=== PATIENT | male | born 1990 ===

== ENCOUNTER 2016-12-27 19:05 | Inpatient (IN) ==
[~2016-12-27 19:05] MED LIST: [UNRECOGNIZED DRUG - OTHER] IV ONE
[2016-12-27] MEDS ORDERED: AMPICILLIN/SULBACTAM 3,000 MG in SODIUM CHLORIDE 0.9% 100 ML IV STA (19:26)
[2016-12-27] MEDS ORDERED: DIPH/TET/ACEL PERT BOOSTER VACCINE 0.5 ML VIAL IM ONE ×2 (19:26→19:40)
[2016-12-27] MEDS ORDERED: SODIUM CHLORIDE 0.9% 500 ML IV STA (19:28)
[2016-12-27] MEDS ORDERED: HYDROmorphone 2 MG/1 ML VIAL IV STA (19:28)
[2016-12-27] MEDS ORDERED: ONDANSETRON 4 MG/2 ML VIAL IV STA (19:28)
--- NOTE | 2016-12-27 19:30 | Emergency Department Note ---
Suzanne Plata Hilary, am scribing for, and in the presence of, Srikanth Waters MD 19:23. Jt Plata Charles R, MD, personally performed the services described in this documentation, ascribed by Alejandra Palacios in my presence, and it is both accurate and complete 930 . Arrival - Arrival Chief Complaint: Animal Bite Stated Complaint: snake bite ED Nursing Triage Note: Pt arrives via ems from home with complaints of cleaning up around his house and was bitten by a snake. Pt has snake at time of triage and it is confirmed to be a water mocassion. Pt has bite to third digit on right hand. Hand is noted to be swollen at time of triage. Denies any other complaints at time of triage. Mode of Arrival: Stretcher Limitations: No Limitations Source: Patient, RN Notes Reviewed Time Seen by Provider: 12/27/16 19:08 - History of Present Illness HPI Narrative: Pt is a 26 y/o male brought into the ED via EMS from [facility] for c/o a snake bite which onset an hour X [employer]. [place] when he was bitten by a water moccasin. The snake is in the room, in a zip lock bag, and is a venomous snake due to its head and tail shape. The snake bit him on his right hand 3rd digit, pt states that he is not in pain other than his hand. No other complaints or problems stated in the ED. Onset (ago): hour(s) Consistency: constant Severity: severe Severity scale (1-10): 4 Allergies/Adverse Reactions: Allergies Allergy/AdvReac Type Severity Reaction Status Date / Time No Known Allergies Allergy Verified 12/27/16 19:16 Home Medications: Home Medications Medication Instructions Recorded Confirmed Type Meloxicam [Mobic] 15 mg PO Q4-6H PRN 12/27/16 12/27/16 History Review of System - Review of System 12 point system: reviewed and no additional remarkable complaints except as stated - Review of System Constitutional: Absent: fever Musculoskeletal: Present: arm pain (right hand, 3rd digit snake bite) Skin: Present: other (swollen right hand) Medical,Surgical,& Family Hx - Social History Smoking Status: Current every day smoker Frequency of Alcohol Use: None Type of Drug Use: Marijuana Exam Vital Signs: Vital Signs Temperature 98.4 F 12/27/16 19:05 Pulse Rate 62 12/27/16 19:16 Respiratory Rate 18 12/27/16 19:05 Blood Pressure 137/94 12/27/16 19:05 O2 Sat by Pulse Oximetry 99 12/27/16 19:05 - General General appearance: alert, in no apparent distress - Head Head exam: Present: atraumatic, normocephalic - Eye Eye exam: Present: normal appearance, PERRL, EOMI - ENT ENT exam: Present: mucous membranes moist, TM's normal bilaterally. Absent: mucous membranes dry - Neck Neck exam: Present: full ROM, trachea midline. Absent: tenderness - Chest Chest inspection: Present: symmetric chest wall rise. Absent: tenderness - Respiratory Respiratory exam: Present: normal lung sounds bilaterally. Absent: respiratory distress - Cardiovascular Cardiovascular exam: Present: regular rate, normal rhythm, normal heart sounds. Absent: murmur, rubs, gallop - Abdominal Exam Abdominal exam: Present: soft, normal bowel sounds. Absent: distention, tenderness - Extremities Exam Extremities exam: Present: full ROM, other (Rt hand middle digit has puncture wound and envenomation up to his wrist) - Back Exam Back exam: Present: full ROM. Absent: tenderness - Neurological Exam Neurological exam: Present: alert, oriented X3, CN II-XII intact. Absent: motor sensory deficit - Psychiatric Psychiatric exam: Present: normal affect, normal mood - Skin Skin exam: Present: warm, dry, intact, normal color. Absent: rash Course - Consultations Consultation #1: spoke to Dr chávez at the [facility] states is no reason to transfer patient. Patient can be handled here with CroFab and medical management. He said he will be there for backup in case they need advice or help manage this patient from a far. Spoke to hospitalist who will come down and evaluate patient Time: 19:15 Consultation #2: Hospitalist will admit patient Time: 20:07 Results - Labs CBC & BMP: 12/27/16 19:41 Lab Results: I have reviewed the patients labs Critical Care Time Critical Care Time: Yes Total Critical Care Time: 60 Disposition Clinical Impression: Snake envenomation Case discussed with: patient Disposition: Still a Patient Condition: Guarded Time of Disposition: 20:08
[2016-12-27] MEDS ORDERED: ONDANSETRON 4 MG/2 ML VIAL ONE (19:39)
[2016-12-27] MEDS ORDERED: HYDROmorphone 2 MG/1 ML VIAL ONE (19:40)
[2016-12-27] MEDS ORDERED: SODIUM CHLORIDE 0.9% 100 ML IV ONE (19:40)
[2016-12-27] MEDS ORDERED: AMPICILLIN/SULBACTAM 3,000 MG VIAL ONE (19:40)
--- NOTE | 2016-12-27 19:41 | XRay Report ---
Exam: XR hand 2V RT Date: 12/27/2016 7:26 PM Indication: Soft tissue swelling fracture wound or foreign body? Comparison: None Technical: AP lateral Findings: Soft tissue swelling is present the radius and ulna carpal bones metacarpals are demonstrated without fracture. Tiny subchondral cysts present over the third metacarpal head. Phalanges are intact. Impression: 1. Soft tissue swelling without obvious fracture or dislocation or radiographic foreign body clearly seen. Component of cellulitis cannot be excluded 2. Subchondral cysts present over the third metacarpal head. PROCEDURE INTERPRETED AT [facility] DEPARTMENT OF RADIOLOGY Final Report Signed by: Dr. aCsimiro Melara
[2016-12-27 19:57] LABS: Basophils # 0.1 10*3/uL (0.0-0.2); Basophils % 0.7 % (0.0-0.8); Eosinophils # 0.5 10*3/uL (0.0-0.87); Eosinophils % 6.4 % (0.00-10.9); Hematocrit 42.3 VOL% (42.0-52.0); Hemoglobin 14.5 GM/DL (14.0-18.0); Immature Granulocytes % 0.4 %; Immature Granulocytes Absolute 0.03 #; Lymphocytes % 26.5 % (21.2-54.2); Mean Corpuscular HGB Conc 34.3 GM/DL (32-36); Mean Corpuscular Hemoglobin 33 PG (27-34); Mean Corpuscular Volume 95.1 FL (87-102); Mean Platelet Volume 9.3 FL (9.6-12.0); Monocytes # 0.6 10*3/uL (0.11-0.8); Monocytes % 7.7 % (1.7-12.7); Neutrophils # 4.3 10*3/uL (1.4-7.4); Neutrophils % 58.3 % (38.7-73.9); Platelet Count 186 T/CUMM (130-400); Red Blood Count 4.45 MC/CUMM (3.8-5.5); Red Cell Distribution Width 13.2 % (9.3-17.3); White Blood Count 7.4 T/CUMM (4-12)
[2016-12-27 20:09] LABS: PT Patient Result 10.9 SECS
[2016-12-27 20:18] LABS: Alanine Aminotransferase 35 U/L (16-61); Alkaline Phosphatase 75 U/L (45-117); Aspartate Amino Transferase 20 U/L (0-37); Bilirubin,Total < 0.39 MG/DL (0.2-1.0); Blood Urea Nitrogen 22 MG/DL (7-18); Calcium 9.1 MG/DL (8.5-10.1); Glucose 100 MG/DL (74-106); Magnesium 2.4 MG/DL (1.8-2.4); Osmolality,Calculated 292.6 MOS/KG (273-304); Potassium 3.9 MMOL/L (3.5-5.1); Sodium 146 MMOL/L (136-145)
--- NOTE | 2016-12-27 20:33 | Hospitalist History & Physical ---
Assessment and Plan (1) Toxic effect of venom of snake Status: Acute Assessment and plan: This crotalid envenomation was by water moccasin. Patient is already been started on CroFab will evaluate the effect of the face dose. If there is worsening conditions that would be worrisome including worsening coag profile worsening swelling in the second dose will be given. Also watch respiratory and cardiac function and also electrolytes. Patient will be admitted to the intensive care unit for more closer observation. From the sound of the started at the time of bites there must have been a lot of venom injected because his snake was hanging on the finger; he had to put it off. He brought the snake to the hospital and was verified to be a water moccasin Current Visit: Yes (2) Cellulitis Status: Acute Assessment and plan: Patient will be started on Zosyn and vancomycin. There was an initial dose of ampicillin given. Zosyn will be given at 10 PM but again we will give vancomycin now. Consent will be to cover for environmental gram negatives in the water as well as anaerobes seen at this night is living in saprophytic involvement staphylococcal organism also need to be covered. Current Visit: No Qualifiers: Site of cellulitis: extremity Site of cellulitis of extremity: upper extremity Laterality: right Qualified Code(s): L03.113 - Cellulitis of right upper limb History of Present Illness Chief complaint: Snakebite/water moccasin History of present illness: Mr. Da Silva is a 26 year old male whom" to see in the emergency room after stabilization. Patient was brought into the emergency room by ambulance following a snakebite by a water moccasin around his household. Including traction the backyard disease. This neck bit him on the arch of the hand on the third digit of the right hand had to pull it off. Acute dyspneic and cut his head off. His neck is in his Cipro back in the room in the emergency room. The time of my assessment patient was already receiving CROFAB intravenously. No swelling of the hand and the markings on the hand that did suggest that is what he was getting down. Is noted ecchymosis at the site of the bite no blistering noted going up the arm. Patient is no complaining of abdominal pain his heart rate was below 100 with sinus control and was not having any respiratory difficulty. No nausea and vomiting. Home Medications Medication Instructions Recorded Confirmed Type Meloxicam [Mobic] 15 mg PO Q4-6H PRN 12/27/16 12/27/16 History Allergies Allergy/AdvReac Type Severity Reaction Status Date / Time No Known Allergies Allergy Verified 12/27/16 19:16 Medical,Surgical,& Family Hx - Medical History Medical History: noncontributory - Social History Smoking Status: Current every day smoker Frequency of Alcohol Use: None Type of Drug Use: Marijuana Review of systems: 12 point system assessment was done. Patient does have a swollen right hand. From serial assessment looks that the swelling is going down since the study of the CroFab. Has no bleeding tendencies done no blistering going up was no lymphangitis no obvious phlebitis. Does have some discomfort in the hand but pain management is optimal no respiratory distress no nausea vomiting no abdominal pain no neurologic abnormalities. Exam - Constitutional Vitals: Period Temp Pulse Resp BP Sys/Llanes Pulse Ox Last 24 Hr 98.4 F-98.4 F 62-65 18-18 137-137/91-94 99 General appearance: normal weight - Head Head exam: Present: normocephalic, atraumatic - Eye Eye exam: Present: EOMI, other (Anicteric sclera no conjunctival petechia) Pupils: Present: MAGDY - ENT ENT exam: Present: normal oropharynx, other (No mucositis no increased secretions) - Neck Neck exam: Present: other (Neck is supple no adenopathy midline trachea no stridor) - Respiratory Respiratory exam: Present: clear to auscultation bilaterally, other (No rales no wheezing good airflow) - Cardiovascular Cardiovascular exam: Present: regular rate and rhythm, other (EKG is pending surveillance system monitor patient has sinus control no ectopy) - GI/Abdominal GI/Abdominal exam: Present: normal bowel sounds, soft, other (No abdominal tenderness or pain no organomegaly) - Extremities Exam Extremities exam: Present: other (Limitation of movement of digits in the right hand otherwise range of motion is normal as well. She does a swallowing right hand and ecchymosis and bruise at site of bite of the third finger no regional adenopathy no lymphangitis no phlebitis) - Neurological Exam Neurological exam: Present: alert, oriented X3, CN II-XII intact - Psychiatric Psychiatric exam: Present: normal affect, normal mood - Skin Skin exam: Present: other (Except for the involved hand with a snakebite everything else is normal) Results - Labs CBC & BMP: 12/27/16 19:41 12/27/16 19:41 Lab Results: I have reviewed the past 24 hour labs (Coag profile is showing a normal international normalizing ratio PTTs pending fibrinogen been and D- dimers are pending CBC is normal. Unusual sodium, chloride and BUN of all elevated. Repeat labs to be drawn at midnight and then in the morning)
[2016-12-27 20:40] LABS: D-Dimer <= 0.5 MG/L FEU; Fibrinogen Quant Value 227 MG% (200-400); Partial Thromboplastin Time 29.8 SECS (0-40)
[2016-12-27] MEDS ORDERED: SODIUM CHLORIDE IV STA (20:50)
[2016-12-27] MEDS ORDERED: CROTALIDAE SNAKE ANTIVENOM IV STA (20:50)
[2016-12-27] MEDS ORDERED: VANCOMYCIN INJ 1,250 MG in SODIUM CHLORIDE 0.9% 250 ML IV ONE (22:00)
[2016-12-28] MEDS ORDERED: CROTALIDAE SNAKE ANTIVENOM 4 VIAL in SODIUM CHLORIDE 0.9% 250 ML IV ONE (00:18)
--- NOTE | 2016-12-28 00:22 | Event Note ---
Called to the patient's bedside because of complaining of swelling in the throat and the whole head and also itching in face and the neck area. Is complaining of numbness in the mouth. Patient was bitten by water moccasin in the third finger of the right hand yesterday. Swelling of the hand is less noticed that there is increasing redness in the face and is complaining of numbness in the mouth and feeling negative throat is swelling. His vital signs are normal he finished his first dose of antivenom around 10 about 2 hours prior. Examination clear lungs on both sides I do not see much of edema but there is a little edema of the face and neck area whether this is vancomycin that has been getting his neck. It will vancomycin was not fast at all. Will discontinue vancomycin and because of his complaint of numbness in the mouth will have to give him another shot of cough. We will give him a total of 5 vials on the second dose. Continue to monitor the patient in the intensive care unit.
[2016-12-28 00:25] LABS: Basophils % 0.3 % (0.0-0.8); Eosinophils # 0.4 10*3/uL (0.0-0.87); Eosinophils % 3.6 % (0.00-10.9); Hematocrit 41.2 VOL% (42.0-52.0); Hemoglobin 13.9 GM/DL (14.0-18.0); Immature Granulocytes % 0.4 %; Immature Granulocytes Absolute 0.04 #; Lymphocytes # 1.9 10*3/uL (1.4-4.0); Lymphocytes % 17.4 % (21.2-54.2); Mean Corpuscular HGB Conc 33.7 GM/DL (32-36); Mean Corpuscular Hemoglobin 32 PG (27-34); Mean Corpuscular Volume 95.8 FL (87-102); Mean Platelet Volume 9.4 FL (9.6-12.0); Monocytes # 0.8 10*3/uL (0.11-0.8); Monocytes % 7.8 % (1.7-12.7); Neutrophils # 7.5 10*3/uL (1.4-7.4); Neutrophils % 70.5 % (38.7-73.9); Platelet Count 170 T/CUMM (130-400); Red Cell Distribution Width 13.2 % (9.3-17.3); White Blood Count 10.6 T/CUMM (4-12)
[2016-12-28 00:46] LABS: Albumin 3.5 G/DL (3.4-5.0); Bilirubin,Total 0.4 MG/DL (0.2-1.0); Calcium 8.3 MG/DL (8.5-10.1); Magnesium 2.1 MG/DL (1.8-2.4); Osmolality,Calculated 292.7 MOS/KG (273-304); Potassium 3.9 MMOL/L (3.5-5.1); Total Protein 6.3 G/DL (6.4-8.3)
[2016-12-28 02:02] LABS: PT Patient Result 10.7 SECS; Partial Thromboplastin Time 30.3 SECS (0-40)
--- NOTE | 2016-12-28 04:46 | EKG Report ---
Stationary ECG Study [facility] Test Date: 12/27/2016 11:38:43 PM Pat Name: CARMEN LEMUS Department: Room: 121 Gender: M Design Consultant: : 1990 Requested by: Van Fontana Order Number: [id number] Reading MD: TONNY RODRÍGUEZ Intervals [place] Rate: 61 P: 88 CA: 199 QRS: 19 QRSD: 116 T: 49 QT: 404 QTc: 407 Interpretive Statements SINUS RHYTHM Electronically Signed On 12-29-16 15:04:20 CDT by TONNY RODRÍGUEZ [email or web address]
[2016-12-28] MEDS: PIPERACILLIN/TAZOBACTAM 3,375 MG in SODIUM CHLORIDE 0.9% 100 ML IV SCH ×3 (05:34→21:00)
--- NOTE | 2016-12-28 08:45 | EKG Report ---
Stationary ECG Study [facility] Test Date: 12/28/2016 8:46:21 AM Pat Name: CARMEN LEMUS Department: Room: 121 Gender: M Book Trimmer: : 1990 Requested by: Micaela Smith Order Number: [id number] Reading MD: TONNY RODRÍGUEZ Intervals [place] Rate: 53 P: 17 VA: 178 QRS: 66 QRSD: 103 T: 66 QT: 425 QTc: 407 Interpretive Statements SINUS BRADYCARDIA POSSIBLE RIGHT VENTRICULAR CONDUCTION DELAY Electronically Signed On 12-29-16 15:10:55 CDT by TONNY RODRÍGUEZ [id number]
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
[2016-12-28] MEDS ORDERED: VANCOMYCIN INJ 1,250 MG in SODIUM CHLORIDE 0.9% 250 ML IV SCH (09:00)
--- NOTE | 2016-12-28 13:06 | Hospitalist Progress Note ---
Assessment and Plan (1) Toxic effect of venom of snake Status: Acute Assessment and plan: 1)snake bite right finger- he has received a total of 10vials of antevenom. Monitor for 18 more hours and if he is still doing well he can be discharged. Appreciate the help from DR Tello. The oral numbness and concern of swelling of his face from the middle of the night has resolved. No respiratory complaints. Labs including platelets and INR are normal. 2)bradycardia- on tele. cards to see. he does not take meds that would cause bradycardia, and it was happening even when he was awake. He is not a highly conditioned athlete though he is young. Current Visit: Yes Qualifiers: Encounter type: initial encounter (2) Bradycardia Status: Acute Current Visit: Yes Hospitalist: Subjective Interval history: Mr Da Silva is doing ok today. His right hand is swollen and tender going up his forearm. He says it is better than it was at it'sworst last night. I discussed the case with Dr Tello and informally with Dr Declan Porter, and I appreciate their help. His heart rate is in the 30s. He is asymptomatic and EKGshows sinus fer. cardiology eval pending. No report of bradycardia specifically with water mocassin bites, though there can be arrhythmias. Exam - Constitutional Vitals: Period Temp Pulse Resp BP Sys/Llanes Pulse Ox Last 24 Hr 97.3 F-98.6 F 44-86 14-24 91-137/57-94 95-100 General appearance: normal weight, no acute distress - Head Head exam: Present: normal inspection, atraumatic - Eye Eye exam: Present: EOMI. Absent: scleral icterus - Respiratory Respiratory exam: Present: clear to auscultation bilaterally - Cardiovascular Cardiovascular exam: Present: regular rate and rhythm - GI/Abdominal GI/Abdominal exam: Present: normal bowel sounds, soft. Absent: tenderness - Extremities Exam Extremities exam: Present: other (right hand and forearm swollen compared to left. No redness no blisters. tender to palpation. No rashes. Fang wounds small , clean) Results - Labs CBC & BMP: 12/28/16 00:15 12/28/16 00:15 Lab Results: I have reviewed the past 24 hour labs
[2016-12-28 14:29] LABS: Free T4 (Free Thyroxine) 0.97 NG/DL (0.76-1.46); Thyroid Stimulating Hormone 3.26 uIU/ml (0.358-3.74)
--- NOTE | 2016-12-28 14:46 | Cardiology Consult Note ---
Marcela Plata April, RN, am scribing for, and in the presence of, Juvenal Corcoran MD 14:46. Assessment and Plan - Time spent with patient Time spent with patient: Greater than 30 minutes (Due to assessment, planning, documentation, medication review) (1) Bradycardia Status: Acute Assessment and plan: 1. 26-year-old male smoker (3 per day) with no known past medical history presented yesterday evening after water moccasin bite to his right hand and reportedly had heart rate in the mid 40s at one point. 2. The patient is calm and hemodynamic is stable with heart rate in the 60s currently (sinus) 3. Unremarkable cardiac examination 4. Do not suspect any current cardiac problems; we will sign off, please call if needed prior to discharge. 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 Da Silva is a 26 year old male who is currently sleeping from pain medication. He will awaken easily but continues to days off. His is at bedside and she provides the history. She reports he has never seen a risk modeler, never had a stress test or heart cath. Denies any medical history except for chronic back pain. Surgical history includes surgery of his right hand. He is a current everyday smoker, drinks alcohol occasionally and uses marijuana. He was cleaning up in the yard yesterday when he was bit on the right hand by a water moccasin. He presented to the emergency department and was given antivenom as well as vancomycin. [facility] medicine and general surgery is following this. EKG on admission showed sinus rhythm with heart rate of 61, EKG this morning showed sinus bradycardia with heart rate 53. We have been consulted to see for bradycardia. His denies any knowledge of him having any issues with his heart rate or rhythm in the past. His nurses his heart rate has ranged from the 40s to the 70s. She says most of the time when it is in the 40s he is sleeping, but not always. She also says that it does not stay in the 40s along with her he is sleeping or not, it quickly goes back up into the 60s and 70s. He denies having had any chest pain. He denies any currently. He reports he does have some shortness of breath after being given antibiotic last night, he reports this was stopped and he has had no further shortness of breath. His only complaint currently is of right hand pain. He is currently resting in bed in no acute distress. teletypesetter monitor currently shows sinus rhythm with heart rates in the 50s-60s. Blood pressure currently 106/70. CC: Micaela Smith MD - Home Medications and Allergies Home Medications: Home Medications Medication Instructions Recorded Confirmed Type Ibuprofen 800 mg PO Q8HR 12/27/16 12/27/16 History Meloxicam [Mobic] 15 mg PO ONCE 12/27/16 12/27/16 History tiZANidine [Zanaflex] 4 mg PO TID 12/27/16 12/27/16 History Allergies/Adverse Reactions: Allergies Allergy/AdvReac Type Severity Reaction Status Date / Time No Known Allergies Allergy Verified 12/27/16 19:16 - Constitutional Constitutional: Present: as per HPI - EENT Eyes: Present: loss of vision. Absent: requires corrective lense Ears: Absent: decreased hearing, tinnitus Nose, mouth and throat: Present: headache(s). Absent: epistaxis, neck pain - Cardiovascular Cardiovascular: Present: edema (Right hand). Absent: chest pain at rest, chest pain with activity, dyspnea, dyspnea on exertion, radiating jaw, neck or arm pain, lightheadedness, orthopnea, palpitations - Respiratory Respiratory: Absent: cough, dyspnea, hemoptysis, dyspnea on exertion, wheezing - Gastrointestinal Gastrointestinal: Absent: abdominal pain, constipation, diarrhea, hematemesis, hematochezia, melena, nausea, vomiting - Genitourinary Genitourinary: Absent: dysuria, hematuria - Musculoskeletal Musculoskeletal: Present: back pain. Absent: limited range of motion, muscle weakness - Neurological Neurological: Present: headache(s). Absent: dizziness, frequent falls, syncope - Psychiatric Psychiatric: Absent: anxiety, depression - Endocrine Endocrine: Absent: fatigue - Hematologic/Lymphatic Hematologic/Lymphatic: Absent: easy bleeding, easy bruising Medical,Surgical,& Family Hx - Medical History Musculoskeletal: History of: Back/Neck Problems (Chronic back problems) - Surgical History Additional Surgical History: Right hand surgery - Family History Family History: Reports;: Family Diabetes (pts mom), Family Heart Disease (pts grandfather) - Social History Smoking Status: Current every day smoker Have you smoked in the last 12 months: Yes Frequency of Alcohol Use: Occasionally Type of Drug Use: Marijuana Marital Status: Lives With:: Spouse Functional capacity: independent ambulation Physical Examination Vital Signs Temp Pulse Resp BP Pulse Ox 98.4 F 65 18 137/91 99 12/27/16 19:05 12/27/16 19:05 12/27/16 19:05 12/27/16 19:05 12/27/16 19:05 General: Present: Appears Well, No Apparent Distress HEENT: Present: PERRL, Mucus Membranes Moist Neck: Present: Supple Neck, Midline Trachea, No Bruit Cardiac: Present: Reg Rate and Rhythm, No Murmur, Bradycardia Lungs: Present: Normal Breath Sounds, No Wheeze, Rales, Rhonchi. Absent: Oxygen Neuro: Absent: Resting Tremor, Essential Tremor Abdomen: Present: Soft, Active Bowel Sounds, Non-Tender. Absent: Distended Skin: Present: Other (Right hand noted to be red and swollen, right forearm swollen). Absent: Rash, Suspicious Lesions Musculoskeletal: Present: No Pain, Normal Range of Motion Extremities: Present: Normal Upper Extr. Pulses, Normal Lower Extr. Pulses, Edema (To right hand and right forearm, none to other extremities) Result/EKG - Labs CBC & BMP: 12/28/16 00:15 12/28/16 00:15 Lab Results: I have reviewed the past 24 hour labs Labs: Laboratory Results - last 24 hr 12/27/16 12/27/16 12/27/16 19:41 19:41 19:41 WBC 7.4 RBC 4.45 Hgb 14.5 Hct 42.3 MCV 95.1 MCH 33 MCHC 34.3 RDW 13.2 Plt Count 186 MPV 9.3 L Neut % (Auto) 58.3 Lymph % (Auto) 26.5 Elliott % (Auto) 7.7 Eos % (Auto) 6.4 Baso % (Auto) 0.7 Neut # (Auto) 4.3 Lymph # (Auto) 2.0 Elliott # (Auto) 0.6 Eos # (Auto) 0.5 Baso # (Auto) 0.1 Immature Gran % 0.4 Nucleated RBC % 0.0 Immature Gran # 0.03 Nucleated RBCs # 0.00 INR 1.0 PT Patient/Control Mix 10.9 Fibrinogen D-Dimer, Quantitative Circ Anticoag PTT Sodium 146 H Potassium 3.9 Chloride 110 H Carbon Dioxide 30 Anion Gap 9.9 BUN 22 H Creatinine 1.20 GFR Calculation 92 BUN/Creatinine Ratio 18.00 Glucose 100 Calculated Osmolality 292.6 Calcium 9.1 Magnesium 2.4 Total Bilirubin < 0.39 AST 20 ALT 35 Alkaline Phosphatase 75 Total Creatine Kinase 298 CK-MB (CK-2) 3.4 Total Protein 7.0 Albumin 4.0 Globulin 3.0 Albumin/Globulin Ratio 1.3 12/27/16 12/28/16 12/28/16 19:41 00:15 00:15 WBC 10.6 D RBC 4.30 Hgb 13.9 L Hct 41.2 L MCV 95.8 MCH 32 MCHC 33.7 RDW 13.2 Plt Count 170 MPV 9.4 L Neut % (Auto) 70.5 Lymph % (Auto) 17.4 L Elliott % (Auto) 7.8 Eos % (Auto) 3.6 Baso % (Auto) 0.3 Neut # (Auto) 7.5 H Lymph # (Auto) 1.9 Elliott # (Auto) 0.8 Eos # (Auto) 0.4 Baso # (Auto) 0.0 Immature Gran % 0.4 Nucleated RBC % 0.0 Immature Gran # 0.04 Nucleated RBCs # 0.00 INR 1.0 PT Patient/Control Mix 10.7 Fibrinogen 227 D-Dimer, Quantitative <= 0.5 Circ Anticoag PTT 29.8 30.3 Sodium Potassium Chloride Carbon Dioxide Anion Gap BUN Creatinine GFR Calculation BUN/Creatinine Ratio Glucose Calculated Osmolality Calcium Magnesium Total Bilirubin AST ALT Alkaline Phosphatase Total Creatine Kinase CK-MB (CK-2) Total Protein Albumin Globulin Albumin/Globulin Ratio 12/28/16 00:15 WBC RBC Hgb Hct MCV MCH MCHC RDW Plt Count MPV Neut % (Auto) Lymph % (Auto) Elliott % (Auto) Eos % (Auto) Baso % (Auto) Neut # (Auto) Lymph # (Auto) Elliott # (Auto) Eos # (Auto) Baso # (Auto) Immature Gran % Nucleated RBC % Immature Gran # Nucleated RBCs # INR PT Patient/Control Mix Fibrinogen D-Dimer, Quantitative Circ Anticoag PTT Sodium 145 Potassium 3.9 Chloride 110 H Carbon Dioxide 26 Anion Gap 12.9 BUN 20 H Creatinine 1.10 GFR Calculation 104 BUN/Creatinine Ratio 18.00 Glucose 126 H Calculated Osmolality 292.7 Calcium 8.3 L Magnesium 2.1 Total Bilirubin 0.40 AST 17 ALT 32 Alkaline Phosphatase 67 Total Creatine Kinase CK-MB (CK-2) Total Protein 6.3 L Albumin 3.5 Globulin 2.8 Albumin/Globulin Ratio 1.2 - Diagnostic Findings Procedure: X-ray: report reviewed by me (Hand) - EKG EKG results: interpreted by me EKG shows: bradycardia, sinus rhythm Jewell Plata Randall Scott, MD, personally performed the services described in this documentation, ascribed by Mitzi Medrano RN in my presence, and it is both accurate and complete 446 .
[2016-12-29] MEDS: PIPERACILLIN/TAZOBACTAM 3,375 MG in SODIUM CHLORIDE 0.9% 100 ML IV SCH (04:39)
[2016-12-29 05:08] LABS: Basophils # 0.1 10*3/uL (0.0-0.2); Basophils % 0.8 % (0.0-0.8); Eosinophils # 0.6 10*3/uL (0.0-0.87); Eosinophils % 8.7 % (0.00-10.9); Hematocrit 39.1 VOL% (42.0-52.0); Hemoglobin 13.2 GM/DL (14.0-18.0); Immature Granulocytes % 0.3 %; Immature Granulocytes Absolute 0.02 #; Lymphocytes # 2.2 10*3/uL (1.4-4.0); Lymphocytes % 33.7 % (21.2-54.2); Mean Corpuscular HGB Conc 33.8 GM/DL (32-36); Mean Corpuscular Hemoglobin 32 PG (27-34); Mean Corpuscular Volume 94.2 FL (87-102); Mean Platelet Volume 9.8 FL (9.6-12.0); Monocytes # 0.6 10*3/uL (0.11-0.8); Monocytes % 8.7 % (1.7-12.7); Neutrophils # 3.1 10*3/uL (1.4-7.4); Neutrophils % 47.8 % (38.7-73.9); Platelet Count 185 T/CUMM (130-400); Red Blood Count 4.15 MC/CUMM (3.8-5.5); Red Cell Distribution Width 12.6 % (9.3-17.3); White Blood Count 6.4 T/CUMM (4-12)
[2016-12-29 05:41] LABS: Calcium 8.2 MG/DL (8.5-10.1); Osmolality,Calculated 285.8 MOS/KG (273-304); Potassium 3.7 MMOL/L (3.5-5.1)
[2016-12-29 08:17] VITALS: BP 124/72
--- NOTE | 2016-12-29 09:05 | Discharge Summary ---
Hospital Course - Hospital Course Hospital Course: Mr. Da Silva is a 26-year-old male with no medical history admitted with a water moccasin snake bite to his right finger. He was admitted and started on antibiotics and he has been given 10 vials of antivenom. He has had good response to the antivenom. Dr. Elisha HERNANDEZ from surgery has seen and examined patient and followed along. The swelling of his right hand and arm are very minimal now and there are no signs of necrosis or infection. Patient did have some bradycardia on telemetry that was asymptomatic. He was seen by cardiology and has since been in normal sinus rhythm. Would recommend him following up with a family physician if he experiences any dizziness or weakness due to low heart rates. Patient will be discharged home on Augmentin and Zap for pain. He will follow-up with Dr. Elisha HERNANDEZ in his office in 1 week. Patient's case has been discussed with Dr. Smith the hospitalist, Dr. Tello the surgeon, patient, family and nursing. Care coordination, chart review, and completed discharge paperwork took approximately 32 minutes. - Time spent with patient Time with patient DS: Greater than 30 minutes Diagnosis - Discharge Diagnosis (1) Toxic effect of venom of snake Status: Resolved (2) Bradycardia Status: Resolved Discharge Plan - Discharge Data Disposition: Disch To Home/Self Care Condition at Discharge: Stable Discharge Diet: advance to your usual diet Activity: resume usual activities as tolerated Hygiene: may shower Driving: other (no driving if taking pain pills) Contact your physician if you experience:: fever over 101, Redness or swelling - Discharge Medications New HYDROcodone/ACETAMIN 7.5-325 [Zap 7.5-325] 1 tablet PO Q6H PRN #20 tablet PRN Reason: Pain Moderate (4-7) Amoxicillin/Clav Tab [Augmentin Tab] 875 mg PO BID #14 tablet Continue Ibuprofen 800 mg PO Q8HR Meloxicam [Mobic] 15 mg PO ONCE tiZANidine [Zanaflex] 4 mg PO TID - Follow Up or Referral Follow Up: Arthur Tello III., MD [Physician] - 1 Week - Forms/Instructions Additional Discharge Instructions: do not take mobic and ibuprofen w the norcos. u can take the ibuprofen in between doses Exam - Constitutional Vitals: Period Temp Pulse Resp BP Sys/Llanes Pulse Ox Last 24 Hr 97.3 F-99.1 F 55-82 14-20 104-124/66-79 93-100 Exam: 26-year-old male, no acute distress, alert and oriented Chest clear CV regular rate and rhythm Abdomen soft nontender Extremities with no pedal edema, right hand with minimal edema to the palm and dorsum of the hand and middle finger. The bites are clean with no signs of necrosis or abscess. Discharge Results Procedures and tests throughout hospitalization: Pending Orders 12/30/16 04:00 BMP w/ Mg [Basic Metabolic Panel w/Mg] IN AM Comp Blood Count Auto Diff IN AM 12/31/16 04:00 BMP w/ Mg [Basic Metabolic Panel w/Mg] IN AM Comp Blood Count Auto Diff IN AM Labs on day of discharge: Labs from last 24 hours 12/29/16 12/29/16 12/28/16 04:02 04:02 00:15 WBC 6.4 D RBC 4.15 Hgb 13.2 L Hct 39.1 L MCV 94.2 MCH 32 MCHC 33.8 RDW 12.6 Plt Count 185 MPV 9.8 Neut % (Auto) 47.8 Lymph % (Auto) 33.7 Winkler % (Auto) 8.7 Eos % (Auto) 8.7 Baso % (Auto) 0.8 Neut # (Auto) 3.1 Lymph # (Auto) 2.2 Winkler # (Auto) 0.6 Eos # (Auto) 0.6 Baso # (Auto) 0.1 Immature Gran % 0.3 Nucleated RBC % 0.0 Immature Gran # 0.02 Nucleated RBCs # 0.00 Sodium 144 Potassium 3.7 Chloride 108 H Carbon Dioxide 27 Anion Gap 12.7 BUN 14 Creatinine 1.00 GFR Calculation 117 BUN/Creatinine Ratio 14.00 Glucose 86 Calculated Osmolality 285.8 Calcium 8.2 L Free T4 0.97 TSH 3rd Generation 3.260 DS: Provider Date of admission: 12/27/16 20:26 Primary care physician: Hans Wolf MD Attending physician on admission: Van Fontana MD Consults: 12/28/16 08:47 Consult to Physician [CONS] Routine Comment: sinus fer after snake bite Consulting Provider: Cardiology - [facility] When should Consulting Provider be notified: Now Person Notified: [facility] answering service Date Notified: 12/28/16 Time Notified: 09:16 Consult to Physician [CONS] Routine Comment: snake bite Consulting Provider: Arthur Tello III. Person Notified: maria t Date Notified: 12/28/16 Time Notified: 09:19 Discharging clinician: NORMAN Pugh Expected date of discharge: 12/29/16
--- NOTE | 2016-12-29 09:25 | General Surgery Progress Note ---
Assessment and Plan (1) Toxic effect of venom of snake Status: Resolved Assessment and plan: This appears to be a moderate envenomation which has been treated with antivenom and has had a good response. I think that he probably does not need anymore antivenom as there appears to be regression of his symptoms and no evidence of stitch of systemic toxicity. I suspect that his bradycardia is unrelated to the snakebite. 12/29: He feels much better and his hand looks much better. There is no erythema and no tenderness and much less edema than yesterday. There is no evidence of necrosis and this appears to be much improved. I feel that he should be fine for discharge as you have planned. Current Visit: Yes Qualifiers: Encounter type: initial encounter (2) Bradycardia Status: Resolved Assessment and plan: This is being evaluated by hospital medicine. He is not hypotensive. I doubt that it is related to the snakebite. Current Visit: Yes Subjective Patient reports: Present: feels better. Absent: still having pain, nausea, vomiting, shortness of breath, fever Exam - Constitutional Vitals: Period Temp Pulse Resp BP Sys/Llanes Pulse Ox Last 24 Hr 97.3 F-99.1 F 55-82 14-20 104-124/66-79 93-100 General appearance: no acute distress - Eye Eye exam: Absent: scleral icterus - Respiratory Respiratory exam: Absent: accessory muscle use - Extremities Exam Extremities exam: Present: edema (Much less than yesterday) Results - Labs CBC & BMP: 12/29/16 04:02 12/29/16 04:02 Lab Results: I have reviewed the past 24 hour labs Specialty Discharge - Follow Up or Referrals Follow up with: Arthur Tello III., MD [Physician] - 1 Week
== END 2016-12-29 13:27 | disposition home or self-care (01) | DRG 918 ==
LOC: N.ED 19:05 → N.EDINP 20:26 → SUATTDRO 20:26 → N.EDINP 21:22 → N.CC 21:34 → N.TELEN 12-28 10:49
PROVIDERS: ADMIT Internal Medicine Infectious Disease; ATTEND Internal Medicine